=== PATIENT | male | born 1990 ===

== ENCOUNTER → 2018-02-27 | Outpatient (REF) | payer OTHER ==
[2018-02-27 12:57] LABS: #IMMOTILE SPERM COUNTED 8; #MOTILE SPERM COUNTED 2; % MOTILITY 20 (> 40%); SEMEN APPEARANCE OPAQUE (OPAQUE); SEMEN VISCOSITY LIQUID (LIQUID); SEMEN VOLUME 2.9 ML (4.0-5.0); SEMEN WBC <=1 M/ml (<=1 M/ml); SEMEN pH 8.5 (7.0-8.0); SPERM ABNORMAL FORMS WBC'S NOTED; SPERM CONCENTRATION 5 M/ml (> 15 M/ml); TOTAL # SPERM COUNTED 10 M/ml
== END ==
LOC: M LAB REF 11:46
DX: Z31.41 Encounter for fertility testing (principal)
CPT/HCPCS: 89320

== ENCOUNTER → 2018-03-13 | Outpatient (REF) | payer OTHER ==
[2018-03-13 13:40] LABS: #IMMOTILE SPERM COUNTED 7; #MOTILE SPERM COUNTED 4; % MOTILITY 36 (> 40%); SEMEN APPEARANCE OPAQUE (OPAQUE); SEMEN VISCOSITY LIQUID (LIQUID); SEMEN VOLUME 3.6 ML (4.0-5.0); SEMEN WBC <=1 M/ml (<=1 M/ml); SPERM CONCENTRATION 5 M/ml (> 15 M/ml); TOTAL # SPERM COUNTED 11 M/ml
== END ==
LOC: M LAB REF 13:17
DX: Z31.41 Encounter for fertility testing (principal)
CPT/HCPCS: 89320